=== PATIENT | female | born 1945 | race Caucasian/White ===

== ENCOUNTER 2016-06-14 08:47 | Inpatient (IN) | payer MEDICARE ==
[~2016-06-14 08:47] MED LIST: ACETAMINOPHEN 1000MG/100 ML PREMIX IV ONE; CEFAZOLIN 2 Gram 50 ML IVPB ONE; FAMOTIDINE 20MG TABLET PO ONE; MECLIZINE 25 MG TABLET PO ONE; METOCLOPRAMIDE 10 MG TABLET PO ONE
[2016-06-14] MEDS ORDERED: OXYCODONE HCL 5 MG TABLET PO PRN (13:15)
[2016-06-14] MEDS ORDERED: AL HYDROX/MAG HYDROX 30ML UD PO PRN (13:15)
[2016-06-14] MEDS ORDERED: ONDANSETRON HCL IV 4 MG/2 ML VIAL IVP PRN (13:15)
[2016-06-14] MEDS ORDERED: METOCLOPRAMIDE HCL 10 MG/2 ML VIAL IVP PRN (13:15)
[2016-06-14] MEDS ORDERED: MAGNESIUM HYDROXIDE 30 ML UDC PO PRN (13:15)
[2016-06-14] MEDS ORDERED: SENNOSIDES/DOCUSATE SODIUM UD CAPSULE PO PRN (13:15)
[2016-06-14] MEDS ORDERED: DIPHENHYDRAMINE HCL 25 MG CAPSULE PO PRN (13:15)
[2016-06-14] MEDS ORDERED: HYDROMORPHONE HCL 1 MG/ML CPJ IVP PRN (13:15)
[2016-06-14] MEDS ORDERED: ACETAMINOPHEN 1,000 MG/ 100 ML IV SCH ×2 (13:15)
[2016-06-14] MEDS ORDERED: ZOLPIDEM TARTRATE 5 MG TABLET PO PRN (13:15)
[2016-06-14] MEDS ORDERED: RANITIDINE 300 MG PO PRN (13:36)
[2016-06-14] MEDS ORDERED: *PACU ONLY* KETAMINE HCL 10 MG/ML (20ML) VIAL IV ONE (14:32)
[2016-06-14] MEDS ORDERED: FENTANYL PF 100MCG/2ML VIAL IV ONE (14:32)
[2016-06-14] MEDS ORDERED: MIDAZOLAM HCL 2MG/2ML VIAL IV ONE (14:32)
[2016-06-14] MEDS: RINGERS SOLUTION,LACTATED 1,000 ML IV SCH (14:56)
[2016-06-14] MEDS: ACETAMINOPHEN 1,000 MG/ 100 ML IV SCH ×4 (15:03→23:36)
[2016-06-14] MEDS ORDERED: TRANEXAMIC ACID 1,000 MG/10 ML ML IV ONE (15:04)
[2016-06-14] MEDS ORDERED: BUPIVACAINE 0.25% W/EPI MPF 30ML VIAL IVP ONE (15:04)
[2016-06-14] MEDS ORDERED: BUPIVACAINE LIPOSOME 266MG/20ML VIAL IV ONE (15:04)
[2016-06-14] MEDS: OXYCODONE HCL 5 MG TABLET PO PRN ×2 (15:06→18:52)
[2016-06-14] MEDS ORDERED: TRANEXAMIC ACID 1,000 MG in 0.9 % SODIUM CHLORIDE 100ML 100 ML IVPB ONE (15:30)
[2016-06-14] MEDS: LANTUS SC SCH (17:22)
[2016-06-14] MEDS: CEFAZOLIN 2 Gram 2 GM in DEXTROSE 1 BAG IVPB SCH (17:23)
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
[2016-06-14] MEDS: METFORMIN 500 MG PO SCH (17:37)
[2016-06-14] MEDS: HYDROMORPHONE HCL 1 MG/ML CPJ IVP PRN ×2 (20:40→23:34)
[2016-06-14] MEDS: ASPIRIN 325 MG TAB ENTERIC-COATED PO SCH (23:36)
[2016-06-14] MEDS: CARVEDILOL 3.125 MG PO SCH (23:37)
[2016-06-14] MEDS: PRAVASTATIN 80 MG PO SCH (23:38)
[2016-06-14] MEDS: EZETIMIBE 10 MG PO SCH (23:38)
[2016-06-14] MEDS: RANITIDINE 300 MG PO SCH (23:39)
[2016-06-15] MEDS: CEFAZOLIN 2 Gram 2 GM in DEXTROSE 1 BAG IVPB SCH ×2 (02:18→11:05)
[2016-06-15] MEDS: ACETAMINOPHEN 1,000 MG/ 100 ML IV SCH ×2 (03:51)
[2016-06-15 06:39] LABS: HEMATOCRIT 33.5 % (35.0-47.0); HEMOGLOBIN 10.5 gm/dl (11.6-16.0); MEAN CELL VOLUME 92.5 fl (81-97); MEAN CORPUSCULAR HGB CONC 31.3 g/dl (32-36); MEAN PLATELET VOLUME 9.7 fl (7.4-10.4); PLATELET COUNT 243 K/uL (130-400); RED BLOOD COUNT 3.62 M/uL (3.80-5.40); RED CELL DISTRIBUTION WIDTH 14.2 % (11.5-14.5); WHITE BLOOD COUNT W/O DIFF 12.5 K/uL (4.2-12.2)
[2016-06-15 06:49] LABS: INR 1.01; PROTHROMBIN TIME (PATIENT) 11.4 SECONDS (9.5-12.1)
[2016-06-15] MEDS: OXYCODONE HCL 5 MG TABLET PO PRN (07:30)
[2016-06-15] MEDS: HYDROMORPHONE HCL 1 MG/ML CPJ IVP PRN ×2 (08:00→11:27)
[2016-06-15] MEDS: INDAPAMIDE 1.25 MG PO SCH (11:15)
[2016-06-15] MEDS: IRBESARTAN 150 MG PO SCH (11:15)
[2016-06-15] MEDS: CARVEDILOL 3.125 MG PO SCH ×3 (11:15→21:44)
[2016-06-15] MEDS: SERTRALINE 100 MG PO SCH (11:16)
[2016-06-15] MEDS: METFORMIN 500 MG PO SCH ×2 (11:17→20:22)
[2016-06-15] MEDS: ASPIRIN 325 MG TAB ENTERIC-COATED PO SCH ×3 (11:18→21:44)
[2016-06-15] MEDS: RINGERS SOLUTION,LACTATED 1,000 ML IV SCH ×2 (11:27→21:46)
--- NOTE | 2016-06-15 12:06 | Physical Therapy Tx Note ---
Physical Therapy Tx Note - Treatment Note Tolerated: Fair Total Time Spent With Patient: 25 Physical Therapy Tx Note: Detail (Patient was sitting on EOB with nursing when PT arrived. Reports her post-operative pain is worse today. Noted surgical drain on R knee and SPO2 set at 2 LO2. Patient ambulated with FWW and SBA x1, to and from the bathroom, for a total of 13'. Gait analysis reveals pt utilizes a step-to gait pattern and shortened stride length due to pain s/p surgery. Educated patient about requirements for swing bed and PT's impression of her progress thus far. SPT and PT observed she is independent with ambulation using RW, bed mobility using upper trapeze bar, and with sit <> stand. She requested help to move her R LE in bed, but was able to move with CGA x1. Patient requires frequent encouragment to fully participate in PT.) Physical Therapy Problem List: Detail (1) LE weakness 2) Antalgic gait 3) LE edema 4) Assistance with bed mobility and transfers) Physical Therapy Goals: 1) Pt. will be independent with HEP. 2) Pt. will I ambulate with AD for household distances without LOB or fear of falling for return to home environment. 3) Pt. will be I with bed mobility and transfers. 4) Pt. will safely and I ascend and descend 5 steps with AD for return to home environment. 5) Pt. will verbalize understanding of LE precautions. Prognosis: Moderate (Patient prognosis is expected to be moderate or above. Moderate prognosis was established on the basis that patient has significant pain with both knee flexion and extension and she tends to limit mobility and support R LE as a result of the pain.) Physical Therapy Plan: The pt. will be seen 1-2x per day, starting 06-15-16 for inpatient therapy for improvement in functional status to return to home environment when goals are achieved.
--- NOTE | 2016-06-15 13:06 | Operative Note ---
DATE OF SURGERY: 06/14/2016. SURGEON: Edgar Sampson D.O. REFERRING PHYSICIAN: Brayden Mccarthy D.O. PREOPERATIVE DIAGNOSIS: OSTEOARTHRITIS OF THE RIGHT KNEE. POSTOPERATIVE DIAGNOSIS: OSTEOARTHRITIS OF THE RIGHT KNEE. OPERATIVE PROCEDURE: Right total knee arthroplasty. DESCRIPTION OF PROCEDURE: This 70-year-old female was taken to the operating room and was placed in the supine position on the operating room table. Spinal anesthesia was induced by the Department of Anesthesia. The right lower extremity was elevated. It was prepped with Hibiclens and draped in the usual sterile fashion. It was exsanguinated and the tourniquet was inflated to 300 mm Hg. All scrubbed personnel wore personal isolation suits. An anterior longitudinal midline incision was made followed by a medial peripatellar arthrotomy incision. An intracondylar drill hole was made for the intramedullary alignment kem and the 9.0 mm, 5-degree valgus cut was made on the distal femur. The wafer of bone was removed. The sizing jig was affixed. A size 57.5 was seen to be the appropriate size for the femur. Subsequently the four-in-one cutting block was pinned in 3 degrees of external rotation and the appropriate cuts were made. We then directed our attention to the proximal tibia. An extramedullary alignment guide was used to cut the proximal tibia referencing a 10-mm cut off the lateral tibial plateau. We then made the appropriate cut on the tibia and the wafer of bone was removed. Remnants of the menisci and loose joint bodies were removed from the posterior aspect of the knee. Remnants of the menisci and osteophytes were removed, and the search for loose joint bodies did not reveal any further loose joint bodies after we had removed approximately three to four. The tibia was sized to a size 67. A 71 overhung slightly and it was felt that we would be better with the 67. Subsequently the stem punch was used , and the trial components were inserted. A 10 mm bearing was seen to be the appropriate size to restore full range of motion. The patella was cut and restored to anatomic heights with a 31 x 8.0 mm patella. The patient's patella was quite tight, and it was felt that a lateral release would be appropriate. Subsequently this was performed, and this dramatically improved patellofemoral stability. The wound was copiously irrigated with lactated ringers solution after all trial components were removed. All of the bony surfaces were dried, and all components were cemented into place. Excess cement was removed after the insertion of each component. Exparel was injected into the posteromedial and lateral corners of the joint and into the periosteum and joint capsule of the proximal tibia and distal femur after all of the final components had been inserted. The tibial base plate was placed first, followed by the insertion of the tibial bearing, the femoral component, and finally the patella. Once the cement had hardened, the knee was again taken through range of motion with excellent stability of the components being identified. The wound was again irrigated with lactated ringers solution. A drain was placed through a separate stab incision. The arthrotomy incision was closed with 2-0 Vicryl. The subcutaneous tissue was closed with 0 Vicryl. The skin was stapled and sterile dressings were applied. The patient was taken to the recovery room in satisfactory condition. GROSS PATHOLOGY: This patient demonstrated advanced medial compartment osteoarthritis; full-thickness articular cartilage loss noted. The patella also demonstrated advanced degenerative disease. FINAL COMPONENTS INSERTED: A [employer] Kenia VanGuard size 57.5 cruciate- retaining femoral component, size 67 tibial base plate, a 10-mm anterior stabilized tibial bearing, and a 31 x 8.0 mm patella was used. Edgar Sampson D.O. Date Time Job Number: [id number] MTDD
[2016-06-15] MEDS ORDERED: ACETAMINOPHEN 325 MG TAB PO PRN (13:15)
[2016-06-15] MEDS: HYDROCODONE/APAP 5/325MG TABLET PO PRN ×2 (14:45→23:06)
--- NOTE | 2016-06-15 15:20 | Physical Therapy Tx Note ---
Physical Therapy Tx Note - Treatment Note Tolerated: Good Total Time Spent With Patient: 35 Physical Therapy Tx Note: Detail (Patient was asleep in bed when PT arrived with CPM turned on and set to 0-60 degrees. Noted removal of post-surgical drain and new application of bandages. Patient reports significant pain no less than 8/10. She requested pain medication per her nurse to control the pain while participating in therapy; nurse was contacted appropriately. Patient did not use oxygen during therapy session, but did have it available. Patient required CGA/Zofia x1 to lift R LE into and out of bed due to pain. Also required less than min A x1 to scoot into bed due to bed height. Otherwise, she was independent with transfers and bed mobility. Patient ambulated to and from her restroom with FWW and CGA x1 to her chair. Patient tends to push up on FWW. Instructed patient to use the grab bar in the bathroom to support herself with sit to stand rather than the FWW due to safety concerns. Pt was able to demonstrate safe mechanics with transfer. While seated in her chair, a small stool was placed under her LEs to accomodate for her height. Appeared hesitant to allow R knee flexion, most likely attributed to pain tolerance. Patient then ambulated from chair to hallway and back to her bed for a total of 60' ( including distance to and from restroom). Plan to continue PT to progress towards functional goals.) Physical Therapy Problem List: Detail (1) LE weakness 2) Antalgic gait 3) LE edema 4) Assistance with bed mobility and transfers) Physical Therapy Goals: 1) Pt. will be independent with HEP. 2) Pt. will I ambulate with AD for household distances without LOB or fear of falling for return to home environment. 3) Pt. will be I with bed mobility and transfers. 4) Pt. will safely and I ascend and descend 5 steps with AD for return to home environment. 5) Pt. will verbalize understanding of LE precautions. Physical Therapy Plan: The pt. will be seen 1-2x per day, starting 06-15-16 for inpatient therapy for improvement in functional status to return to home environment when goals are achieved.
[2016-06-15] MEDS: LANTUS SC SCH (17:47)
[2016-06-15] MEDS: RANITIDINE 300 MG PO SCH ×2 (20:22→21:45)
[2016-06-15] MEDS: PRAVASTATIN 80 MG PO SCH (20:23)
[2016-06-15] MEDS: EZETIMIBE 10 MG PO SCH ×2 (20:23→21:45)
[2016-06-16 06:36] LABS: HEMATOCRIT 31.7 % (35.0-47.0); HEMOGLOBIN 10.1 gm/dl (11.6-16.0); MEAN CELL VOLUME 90.8 fl (81-97); MEAN CORPUSCULAR HEMOGLOBIN 28.9 pg (27-33); MEAN CORPUSCULAR HGB CONC 31.9 g/dl (32-36); MEAN PLATELET VOLUME 10.6 fl (7.4-10.4); PLATELET COUNT 215 K/uL (130-400); RED BLOOD COUNT 3.49 M/uL (3.80-5.40); RED CELL DISTRIBUTION WIDTH 14.2 % (11.5-14.5); WHITE BLOOD COUNT W/O DIFF 12.1 K/uL (4.2-12.2)
[2016-06-16 06:42] LABS: INR 1.07; PROTHROMBIN TIME (PATIENT) 12.1 SECONDS (9.5-12.1)
[2016-06-16] MEDS: HYDROCODONE/APAP 5/325MG TABLET PO PRN ×3 (08:46→21:40)
[2016-06-16] MEDS: SERTRALINE 100 MG PO SCH ×2 (08:48→10:47)
[2016-06-16] MEDS: INDAPAMIDE 1.25 MG PO SCH ×2 (08:50→10:46)
[2016-06-16] MEDS: CARVEDILOL 3.125 MG PO SCH ×4 (08:51→22:39)
[2016-06-16] MEDS: IRBESARTAN 150 MG PO SCH ×2 (08:51→10:46)
[2016-06-16] MEDS: METFORMIN 500 MG PO SCH ×2 (08:52→17:50)
[2016-06-16] MEDS: ASPIRIN 325 MG TAB ENTERIC-COATED PO SCH ×2 (10:42→22:39)
--- NOTE | 2016-06-16 11:54 | Physical Therapy Tx Note ---
Physical Therapy Tx Note - Treatment Note Total Time Spent With Patient: 40 Physical Therapy Tx Note: Detail (Supine<>sit and sit<>stand Independent, ambulated 3 steps and level surfaces with cues for saftey. level surfaces 60' x2 all using 2ww. min. c/o pain, but TRONCOSO. pt was also cued to pursed lip breath to avoid too much 02 dept AM treatment.PM treatment supine <> sit with 1 assist for right LE, Sit <> stand independent, independent ambulation 60' x2 and up & down 3 steps with min PA of 1. pursed lip breathing improved this pm.) Physical Therapy Problem List: Detail (1) LE weakness 2) Antalgic gait 3) LE edema 4) Assistance with bed mobility and transfers) Physical Therapy Goals: 1) Pt. will be independent with HEP. 2) Pt. will I ambulate with AD for household distances without LOB or fear of falling for return to home environment. 3) Pt. will be I with bed mobility and transfers. 4) Pt. will safely and I ascend and descend 5 steps with AD for return to home environment. 5) Pt. will verbalize understanding of LE precautions. Prognosis: Good Physical Therapy Plan: The pt. will be seen 1-2x per day, starting 06-15-16 for inpatient therapy for improvement in functional status to return to home environment when goals are achieved.
[2016-06-16] MEDS: LANTUS SC SCH (16:30)
[2016-06-16] MEDS: EZETIMIBE 10 MG PO SCH ×2 (17:56→22:39)
[2016-06-16] MEDS: PRAVASTATIN 80 MG PO SCH ×2 (17:57→22:39)
[2016-06-16] MEDS: RANITIDINE 300 MG PO SCH ×2 (17:58→22:40)
[2016-06-17] MEDS: HYDROCODONE/APAP 5/325MG TABLET PO PRN ×2 (05:11→11:25)
[2016-06-17 06:47] LABS: HEMATOCRIT 30.2 % (35.0-47.0); HEMOGLOBIN 9.6 gm/dl (11.6-16.0); MEAN CELL VOLUME 91.5 fl (81-97); MEAN CORPUSCULAR HGB CONC 31.8 g/dl (32-36); MEAN PLATELET VOLUME 10.1 fl (7.4-10.4); PLATELET COUNT 236 K/uL (130-400); RED CELL DISTRIBUTION WIDTH 14.1 % (11.5-14.5); WHITE BLOOD COUNT W/O DIFF 10.6 K/uL (4.2-12.2)
[2016-06-17 06:53] LABS: INR 1.04; PROTHROMBIN TIME (PATIENT) 11.7 SECONDS (9.5-12.1)
[2016-06-17] MEDS: METFORMIN 500 MG PO SCH (09:00)
[2016-06-17] MEDS: ASPIRIN 325 MG TAB ENTERIC-COATED PO SCH (10:22)
[2016-06-17] MEDS: CARVEDILOL 3.125 MG PO SCH (10:24)
[2016-06-17] MEDS: SERTRALINE 100 MG PO SCH (10:25)
[2016-06-17] MEDS: INDAPAMIDE 1.25 MG PO SCH (10:27)
[2016-06-17] MEDS: IRBESARTAN 150 MG PO SCH (10:29)
--- NOTE | 2016-06-17 13:38 | Physical Therapy Tx Note ---
Physical Therapy Tx Note - Treatment Note Tolerated: Good (Patient doing extremely well but does get short of breath sometimes with gait: O2 handy prn. Still difficulty bending knee also so tried exercises seated in chair today with better result.) Total Time Spent With Patient: 30 Physical Therapy Tx Note: Detail (Patient seen bedside, just finishing meal and willing to get up and walk so CGA and ambulated with FWW into banerjee at least 100 feet (just past nurses station) WBAT right LE. Back to sit in chair and worked on ROM for knee, hip and ankle with slight resistance. Transferred back to bed with CGA only and assist to get right LE into the bed, up in bed with trapeze and assist with right LE only.) Physical Therapy Problem List: Detail (1) LE weakness 2) Antalgic gait 3) LE edema 4) Assistance with bed mobility and transfers) Physical Therapy Goals: 1) Pt. will be independent with HEP. 2) Pt. will I ambulate with AD for household distances without LOB or fear of falling for return to home environment. 3) Pt. will be I with bed mobility and transfers. 4) Pt. will safely and I ascend and descend 5 steps with AD for return to home environment. 5) Pt. will verbalize understanding of LE precautions. Prognosis: Good (Patient doing very well and ready to transition to swing bed tomorrow. Plan to see one time more today if patient not sleeping.) Physical Therapy Plan: The pt. will be seen 1-2x per day, starting 06-15-16 for inpatient therapy for improvement in functional status to return to home environment when goals are achieved.
--- NOTE | 2016-06-17 14:48 | Physical Therapy Tx Note ---
Physical Therapy Tx Note - Treatment Note Tolerated: Good (Patient still doing well this afternoon and had short nap for rest. Supine to sit to stand with cues and CGA only, ambulated in banerjee about 100 feet with FWW and CGA, WBAT right. Performed exercises for knee and needed slight assist with SLR right yet, heel slides as well. Independent with isometrics and ankle pumps. Up in bed with slight assist right LE.) Total Time Spent With Patient: 20 Physical Therapy Tx Note: Detail (See above. Able to ambulate with FWW 100 feet or more with good WB right. Exercises require some assist for heel slide and SLR.) Physical Therapy Problem List: Detail (1) LE weakness 2) Antalgic gait 3) LE edema 4) Assistance with bed mobility and transfers) Physical Therapy Goals: 1) Pt. will be independent with HEP. 2) Pt. will I ambulate with AD for household distances without LOB or fear of falling for return to home environment. 3) Pt. will be I with bed mobility and transfers. 4) Pt. will safely and I ascend and descend 5 steps with AD for return to home environment. 5) Pt. will verbalize understanding of LE precautions. Prognosis: Good (Excellent progress, no shortness of breath but does use O2 when has been up and active.) Physical Therapy Plan: The pt. will be seen 1-2x per day, starting 06-15-16 for inpatient therapy for improvement in functional status to return to home environment when goals are achieved. Plan is for patient to transition to swingbed for rehab Saturday after PT finished.
--- NOTE | 2016-06-18 15:50 | Discharge Summary ---
DATE OF ADMISSION: 06/14/16 DATE OF DISCHARGE: 06/17/16 ADMITTING DIAGNOSIS: OSTEOARTHRITIS OF THE LEFT KNEE. DISCHARGE DIAGNOSIS: OSTEOARTHRITIS OF THE LEFT KNEE. OPERATIVE PROCEDURE: ELECTIVE LEFT TOTAL KNEE ARTHROPLASTY. DESCRIPTION: This 70-year-old female was admitted to the hospital for elective total knee arthroplasty and tolerated the operative procedure well. She complained of a considerable amount of pain, which was controlled. She progressed somewhat slowly with physical therapy and it was felt that she would need subacute rehab. The patient will be discharged to the Swing Bed Program on 06/17/16. She will wear her PAMELA hose during the day and remove them at night. She will continue to take Percocet 7.5/325 one or two every six hours as necessary for pain and she will take Aspirin 325 mg b.i.d. for a two week period of time. She will be follow-up in the clinic in two weeks for staple removal. Routine wound care instructions were given. She was instructed to call my office should she have any problems prior to being seen. DALIA HERNANDEZ D.O. Date & Time JOB NUMBER: [id number] MTDD
== END 2016-06-17 15:15 | disposition swing bed (61) | DRG 470 ==
LOC: MEDSURG 08:47
PROVIDERS: ADMIT Orthopaedic Surgery; ATTEND Orthopaedic Surgery
PROC: 0SRC0J9 Replacement of Right Knee Joint with Synthetic Substitute, Cemented, Open Approach (ICD-10-PCS; principal; 2016-06-14 11:00)
DX: M17.11 Unilateral primary osteoarthritis, right knee (principal); E11.9 Type 2 diabetes mellitus without complications; Z79.4 Long term (current) use of insulin; I10 Essential (primary) hypertension; J43.9 Emphysema, unspecified
CPT/HCPCS: 36416; 82948; 85025; 85610; 93005; 93010; 94760; 97110; 97116; 97161; J1170; J7120

== ENCOUNTER 2016-06-17 14:37 | Inpatient (IN) | payer MEDICARE ==
[~2016-06-17 14:37] MED LIST changes: -ACETAMINOPHEN 1000MG/100 ML PREMIX IV ONE; +ACETAMINOPHEN 325 MG TAB PO PRN; +AL HYDROX/MAG HYDROX 30ML UD PO PRN; -CEFAZOLIN 2 Gram 50 ML IVPB ONE; +DIPHENHYDRAMINE HCL 25 MG CAPSULE PO PRN; -FAMOTIDINE 20MG TABLET PO ONE; +HYDROCODONE/APAP 5/325MG TABLET PO PRN; +MAGNESIUM HYDROXIDE 30 ML UDC PO PRN; -MECLIZINE 25 MG TABLET PO ONE; -METOCLOPRAMIDE 10 MG TABLET PO ONE; +SENNOSIDES/DOCUSATE SODIUM UD CAPSULE PO PRN
[2016-06-17] MEDS: LANTUS SC SCH (17:29)
[2016-06-17] MEDS ORDERED: FLU VAC QS 2016-17 (INPT, 3YR+) 60MCG/0.5ML IM ONE (17:33)
[2016-06-17] MEDS: METFORMIN 500 MG PO SCH (18:11)
[2016-06-17] MEDS: HYDROCODONE/APAP 5/325MG TABLET PO PRN (18:12)
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
[2016-06-17] MEDS: PATIENT OWN MED: ASPIRIN 325 MG PO SCH ×2 (20:05→22:10)
[2016-06-17] MEDS: RANITIDINE 300 MG PO SCH ×2 (20:05→22:11)
[2016-06-17] MEDS: CARVEDILOL 3.125 MG PO SCH ×2 (20:06→22:10)
[2016-06-17] MEDS: EZETIMIBE 10 MG PO SCH ×2 (20:07→22:10)
[2016-06-17] MEDS: PRAVASTATIN 80 MG PO SCH ×2 (20:07→22:10)
[2016-06-18] MEDS: HYDROCODONE/APAP 5/325MG TABLET PO PRN ×2 (07:34→15:56)
[2016-06-18] MEDS: METFORMIN 500 MG PO SCH ×2 (07:36→17:53)
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
[2016-06-18] MEDS: CARVEDILOL 3.125 MG PO SCH ×3 (10:34→23:37)
[2016-06-18] MEDS: PATIENT OWN MED: ASPIRIN 325 MG PO SCH ×3 (10:34→23:36)
[2016-06-18] MEDS: SERTRALINE 100 MG PO SCH (10:35)
[2016-06-18] MEDS: IRBESARTAN 150 MG PO SCH (10:35)
[2016-06-18] MEDS: INDAPAMIDE 1.25 MG PO SCH (10:35)
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
--- NOTE | 2016-06-18 14:35 | Physical Therapy Tx Note ---
Physical Therapy Tx Note - Treatment Note Tolerated: Good Total Time Spent With Patient: 30 Physical Therapy Tx Note: Detail (Patient states right knee very painful today. Patient transferred supine to sit independently. Patient performed the following exercises x10 reps each: SLR with green strap assist, quad set, seated marching, adductor squeeze, LAQ, hamstring curls with red theraband, ankle pumps, seated marching, isometric hip abduciton, and seated heel slides. Patient transferred sit to and from stand SBA x1. Patient ambulated 102 feet with wheeled walker SBA x1. Patient tolerated treatment well. Patient displays decreased strength and endurance with LAQ, SLR with assist, quad sets, hamstring curls, and seated marching. Patient displays decreased knee flexion and extension ROM with seated heel slides. Patient was left seated on edge of bed with call light within reach.) Physical Therapy Problem List: Detail (1. restricted R knee AROM 2.) Prognosis: Good
[2016-06-18] MEDS: LANTUS SC SCH (16:37)
[2016-06-18] MEDS: EZETIMIBE 10 MG PO SCH ×2 (21:23→23:37)
[2016-06-18] MEDS: RANITIDINE 300 MG PO SCH ×2 (21:24→23:38)
[2016-06-18] MEDS: PRAVASTATIN 80 MG PO SCH ×2 (21:25→23:38)
[2016-06-19] MEDS: METFORMIN 500 MG PO SCH ×2 (08:35→17:35)
[2016-06-19] MEDS: HYDROCODONE/APAP 5/325MG TABLET PO PRN ×2 (08:39→17:26)
[2016-06-19] MEDS: PATIENT OWN MED: ASPIRIN 325 MG PO SCH ×3 (09:23→21:03)
[2016-06-19] MEDS: CARVEDILOL 3.125 MG PO SCH ×3 (09:23→21:03)
[2016-06-19] MEDS: INDAPAMIDE 1.25 MG PO SCH (09:24)
[2016-06-19] MEDS: IRBESARTAN 150 MG PO SCH (09:25)
[2016-06-19] MEDS: SERTRALINE 100 MG PO SCH (09:27)
--- NOTE | 2016-06-19 10:40 | Physical Therapy Tx Note ---
Physical Therapy Tx Note - Treatment Note Tolerated: Good (Patient's pain control was well controlled throughout the therapy session.) Total Time Spent With Patient: 35 Physical Therapy Tx Note: Detail (Patient was sitting upright in bed when PT arrived. Patient independently dress herself sitting on EOB and was able to WB to pull her bottoms up. PT brought patient up to rehab floor in for therapy session. Patient was able to ascend 3-4" steps and 2-6" steps using 2 railings without difficulty or pain exacerbation. In supine, the patient performed the following therapeutic exercises:R TKE into stability ball x10, R straight leg raise x7 with x1 fingertip support to initiate movement, and R hamstring curl using stability ball to address knee ROM and strength. To further address knee flexion, patient performed heel slides x10 in sitting. R Knee ROM measured 70 degrees flexion and -9 degrees extension (lacking 9 deg). Patient's pain appeared to be well controlled throughout the session per patient report.) Physical Therapy Problem List: Detail (1. Restricted R knee AROM s/p TKA 2. Reduced R hip and knee strength s/p TKA 3. Difficulty lifting R LE into bed due to pain 3. Difficulty performing isolated control of R quadriceps muscle 4. Improve gait pattern using FWW to facilitate normal ROM of R LE.) Physical Therapy Goals: 1) Patient will demonstrate an improvement of hip and knee ROM by 5-15 degrees. 2) Patient will demonstrate an increase of 1/3+ grade R hip flexion and knee flexion/extension with MMT. 3) Patient will demonstrate independence with HEP. 4) Patient will achieve improved gait mechanics as demonstrated by an increase in B stride length and R knee flexion throughout swing phase 75% of the time. 5) Patient will be able to lift R LE into bed without use of L leg or strap to assist. Prognosis: Good (Patient was sitting up in bed when PT arrived. Patient dressed herself sitting EOB and was able to WB to pull up her bottoms without UE support. PT transported her to the rehab floor in for therapy session. Pt ascended 3- 4" and descended 2-6" steps with 2 railings without difficulty or pain exacerbation. In supine, patient performed the following therapeutic exercises: TKE into stability ball x10, SLR x7 with x1 fingertip support to help initiate movement, and R SL hamstring curl using stability ball x10. Patient performed 10 heel slides in sitting to address knee flexion AROM. Ending ROM measured 70 degrees knee flexion and lackingn 9 degrees knee extension. Patient reported less pain throughout and at the conclusion of the) Physical Therapy Plan: PT M-F 1-2x/day to address LE strength, LE ROM, neuromuscular reeducation, gait training, transfer training, and HEP.
--- NOTE | 2016-06-19 14:44 | Occupational Therapy Tx Note ---
Occupational Therapy Tx Note - Treatment Note Tolerated: Good Total Time Spent With Patient: 30 (ADL) Occupational Therapy Treatment Note: Detail (S: Pt ready for showering. O: Shower evaluation: Sit to stand and amb to shower with 2 wheeled walker Indly. Doffed shirt, bra, pants, underpants Indly. Pt completed total body shower in sitting with hand held shower. Pt able to dry self Indly. Donned underpants and PJ gown Indly. Amb to EOB with 2 wheeled walker Indly. Brushed hair Indly. Sit to supine Indly and scooted up in bed with trapeze. Pt had some shortness of breath but she reports it is better than it usually is at home. A: Ind with total body showering, Ind with total body dressing, Ind with amb short distances with 2 wheeled walker) Occupational Therapy Problem List: Detail (1. Decreased Ind with toileting and showering 2. Decreased endurance with self care activities) Occupational Therapy Goals: 1. Pt will be Ind with toileting and showering. 2. Pt will improve overall endurance needed for safe and Ind ADLs Prognosis: Good Occupational Therapy Plan: OT 2-4 days per week to address self cares/ADLs, functional mobility, endurance and safety to allow return home with spouse.
[2016-06-19] MEDS: LANTUS SC SCH (15:37)
[2016-06-19] MEDS: EZETIMIBE 10 MG PO SCH ×2 (20:25→21:03)
[2016-06-19] MEDS: PRAVASTATIN 80 MG PO SCH ×2 (20:25→21:03)
[2016-06-19] MEDS: RANITIDINE 300 MG PO SCH ×2 (20:25→21:04)
[2016-06-20] MEDS: HYDROCODONE/APAP 5/325MG TABLET PO PRN ×3 (07:14→14:14)
[2016-06-20] MEDS: METFORMIN 500 MG PO SCH ×2 (08:23→18:28)
--- NOTE | 2016-06-20 11:31 | Physical Therapy Tx Note ---
Physical Therapy Tx Note - Treatment Note Tolerated: Good Total Time Spent With Patient: 45 Physical Therapy Tx Note: Detail (Patient was resting in bed when PT arrived. Pt independently transferred to and PT brought her up to the rehab floor. Performed 15x heel slides with 2 sec hold sitting on edge of mat table. When transitioning to supine, patient reported pain and a feeling of a "pop" on the outside of her leg. No obvious LOTUS per SPT observation of pt movement. SPT and PT assessed lateral aspect of knee and identified restricted scar tissue and tightness at IT band insertion. Performed STM and MFR to IT band insertion, popliteal area, lateral gastrocnemius insertion, and proximal aspect of anterior tibialis muscle belly for a total of 20 minutes. Patient reported relief with MTT and was able to complete the following therapeutic exercises: TKE into stability ball x12, SLR x3, and short arc quad x10. SPT also performed gentle joint distraction for 1 min to reduce pain and influence knee extension. Ice machine was placed on R knee to reduce pain and swelling. End of session ROM measured 72 degrees flexion and -10 degrees extension.) Physical Therapy Problem List: Detail (1. Restricted R knee AROM s/p TKA 2. Reduced R hip and knee strength s/p TKA 3. Difficulty lifting R LE into bed due to pain 3. Difficulty performing isolated control of R quadriceps muscle 4. Improve gait pattern using FWW to facilitate normal ROM of R LE.) Physical Therapy Goals: 1) Patient will demonstrate an improvement of hip and knee ROM by 5-15 degrees. 2) Patient will demonstrate an increase of 1/3+ grade R hip flexion and knee flexion/extension with MMT. 3) Patient will demonstrate independence with HEP. 4) Patient will achieve improved gait mechanics as demonstrated by an increase in B stride length and R knee flexion throughout swing phase 75% of the time. 5) Patient will be able to lift R LE into bed without use of L leg or strap to assist. Prognosis: Good Physical Therapy Plan: PT M-F 1-2x/day to address LE strength, LE ROM, neuromuscular reeducation, gait training, transfer training, and HEP.
[2016-06-20] MEDS: PATIENT OWN MED: ASPIRIN 325 MG PO SCH ×2 (11:33→21:29)
[2016-06-20] MEDS: INDAPAMIDE 1.25 MG PO SCH (11:34)
[2016-06-20] MEDS: CARVEDILOL 3.125 MG PO SCH ×2 (11:34→21:28)
[2016-06-20] MEDS: SERTRALINE 100 MG PO SCH (11:34)
[2016-06-20] MEDS: IRBESARTAN 150 MG PO SCH (11:34)
--- NOTE | 2016-06-20 14:41 | Physical Therapy Tx Note ---
Physical Therapy Tx Note - Treatment Note Tolerated: Fair Total Time Spent With Patient: 15 (Patient's participation limited due to pain) Physical Therapy Tx Note: Detail (Patient was sitting in bed with nursing present when PT arrived. Pt just received pain medication and verbalized she was still in excruciating pain from this morning's session. Patient agreed to participate with PT and SPT. Treatment focused on functional goals, namely to get into and out of tub to ensure safe transition home. Patient transferred from sit to stand with FWW and ambulated approx 31' x2 with SBA x2. Instructed patient on how to get into and out of tub with shower chair using safe techniques. Patient was able to independently get into and out of tub with with some difficulty and increased pain lifting the R leg. Verbal cueing for assisting R leg was provided and patient was able to successfully complete tub transfer. Patient verbalized no concerns with tub transfer and reiterated she plans to install grab bars. Patient left in bed with call light within reach; nursing notified.) Physical Therapy Problem List: Detail (1. Restricted R knee AROM s/p TKA 2. Reduced R hip and knee strength s/p TKA 3. Difficulty lifting R LE into bed due to pain 3. Difficulty performing isolated control of R quadriceps muscle 4. Improve gait pattern using FWW to facilitate normal ROM of R LE.) Physical Therapy Goals: 1) Patient will demonstrate an improvement of hip and knee ROM by 5-15 degrees. 2) Patient will demonstrate an increase of 1/3+ grade R hip flexion and knee flexion/extension with MMT. 3) Patient will demonstrate independence with HEP. 4) Patient will achieve improved gait mechanics as demonstrated by an increase in B stride length and R knee flexion throughout swing phase 75% of the time. 5) Patient will be able to lift R LE into bed without use of L leg or strap to assist. Physical Therapy Plan: PT M-F 1-2x/day to address LE strength, LE ROM, neuromuscular reeducation, gait training, transfer training, and HEP.
[2016-06-20] MEDS: LANTUS SC SCH (16:49)
[2016-06-20] MEDS: PRAVASTATIN 80 MG PO SCH (21:28)
[2016-06-20] MEDS: EZETIMIBE 10 MG PO SCH (21:28)
[2016-06-20] MEDS: RANITIDINE 300 MG PO SCH (21:28)
[2016-06-21] MEDS: METFORMIN 500 MG PO SCH ×2 (07:55→17:51)
[2016-06-21] MEDS: PATIENT OWN MED: ASPIRIN 325 MG PO SCH ×2 (09:47→21:37)
[2016-06-21] MEDS: CARVEDILOL 3.125 MG PO SCH ×2 (09:48→21:38)
[2016-06-21] MEDS: SERTRALINE 100 MG PO SCH (09:48)
[2016-06-21] MEDS: INDAPAMIDE 1.25 MG PO SCH (09:49)
[2016-06-21] MEDS: IRBESARTAN 150 MG PO SCH (09:49)
[2016-06-21] MEDS: HYDROCODONE/APAP 5/325MG TABLET PO PRN ×2 (09:52→16:28)
--- NOTE | 2016-06-21 11:25 | Physical Therapy Tx Note ---
Physical Therapy Tx Note - Treatment Note Tolerated: Good Total Time Spent With Patient: 45 Physical Therapy Tx Note: Detail (Patient states right knee sore today. Patient transferred supine to sit independently. Patient transferred sit to and from stand SBA x1. Patient transferred sit to supine independently. Patient ambulated 99 feet with wheeled walker SBA x1. Patient transferred sit to and from stand SBA x1. Patient performed the following exercises x10 reps each: LAQ, hamstring curls with yellow theraband, quad sets, SLR with assist, SAQ, physioball knee ROM flexion/extension, and ankle pumps. Patient transferred supine to sit mod assist x1. Patient transferred sit to and from stand x2 SBA x1. Patient transferred sit to supine independently. Patient was left reclined in bed with call light within reach.) Physical Therapy Problem List: Detail (1. Restricted R knee AROM s/p TKA 2. Reduced R hip and knee strength s/p TKA 3. Difficulty lifting R LE into bed due to pain 3. Difficulty performing isolated control of R quadriceps muscle 4. Improve gait pattern using FWW to facilitate normal ROM of R LE.) Physical Therapy Goals: 1) Patient will demonstrate an improvement of hip and knee ROM by 5-15 degrees. 2) Patient will demonstrate an increase of 1/3+ grade R hip flexion and knee flexion/extension with MMT. 3) Patient will demonstrate independence with HEP. 4) Patient will achieve improved gait mechanics as demonstrated by an increase in B stride length and R knee flexion throughout swing phase 75% of the time. 5) Patient will be able to lift R LE into bed without use of L leg or strap to assist. Prognosis: Good Physical Therapy Plan: PT M-F 1-2x/day to address LE strength, LE ROM, neuromuscular reeducation, gait training, transfer training, and HEP.
--- NOTE | 2016-06-21 14:36 | Physical Therapy Tx Note ---
Physical Therapy Tx Note - Treatment Note Tolerated: Good Total Time Spent With Patient: 30 Physical Therapy Tx Note: Detail (Patient states 8/10 pain in right knee. Patient transferred supine to sit independently. Patient transferred sit to and from stand independently. Patient ambulated 211 feet with wheeled walker SBA x1. Patient transferred sit to and from stand independently. Patient ambulated 99 feet with wheeled walker SBA x1. Patient performed the following exercises x10 reps each: seated marching, seated heel slides, LAQ, hamstring curls with yellow, standing heel raises, and standing toe raises. Patient tolerated treatment well. Patient displays decreased knee flexion ROM with seated heel slides. Patient was left seated on edge of bed with call light within reach.) Physical Therapy Problem List: Detail (1. Restricted R knee AROM s/p TKA 2. Reduced R hip and knee strength s/p TKA 3. Difficulty lifting R LE into bed due to pain 3. Difficulty performing isolated control of R quadriceps muscle 4. Improve gait pattern using FWW to facilitate normal ROM of R LE.) Physical Therapy Goals: 1) Patient will demonstrate an improvement of hip and knee ROM by 5-15 degrees. 2) Patient will demonstrate an increase of 1/3+ grade R hip flexion and knee flexion/extension with MMT. 3) Patient will demonstrate independence with HEP. 4) Patient will achieve improved gait mechanics as demonstrated by an increase in B stride length and R knee flexion throughout swing phase 75% of the time. 5) Patient will be able to lift R LE into bed without use of L leg or strap to assist. Prognosis: Good Physical Therapy Plan: PT M-F 1-2x/day to address LE strength, LE ROM, neuromuscular reeducation, gait training, transfer training, and HEP.
[2016-06-21] MEDS: LANTUS SC SCH (15:34)
[2016-06-21] MEDS: PRAVASTATIN 80 MG PO SCH (21:38)
[2016-06-21] MEDS: EZETIMIBE 10 MG PO SCH (21:38)
[2016-06-21] MEDS: RANITIDINE 300 MG PO SCH (21:39)
[2016-06-22] MEDS: HYDROCODONE/APAP 5/325MG TABLET PO PRN (06:08)
[2016-06-22] MEDS: METFORMIN 500 MG PO SCH (08:19)
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
--- NOTE | 2016-06-22 10:00 | Discharge Summary ---
Providers Discharge Summary Date: 06/22/16 Date of admission: 06/17/16 15:47 Expected Date of Discharge: 06/22/16 Attending physician: DILLON BUSTAMANTE Primary care physician: MARCUS HUTTON D.O. Physical Exam - Vital Signs Vital Signs: Vital Signs - Last 24 Hrs Temp Pulse BP Pulse Ox 06/22/16 08:51 98.5 F 73 137/43 92 L - General General Appearance: Alert, Oriented x3, Cooperative, No acute distress - Head Head exam: Atraumatic, Normocephalic - Eye Eye exam: Normal appearance - ENT ENT exam: Normal exam Ear exam: Normal external inspection Nasal Exam: Normal inspection Teeth exam: Normal inspection Throat exam: Normal inspection - Neck Neck exam: Normal inspection, Full ROM - Respiratory Respiratory exam: Normal lung sounds bilaterally. negative: Decreased breath sounds - Cardiovascular Cardiovascular Exam: Regular rate, Normal rhythm, Normal heart sounds - GI/Abdominal GI/Abdominal exam: Soft, Normal bowel sounds - Rectal Rectal exam: Deferred - exam: Deferred - Extremities Extremities exam: Normal inspection, Other (right knee incision). negative: Calf tenderness - Back Back exam: Reports: Normal inspection - Neurological Neurological exam: Alert - Psychiatric Psychiatric exam: Normal affect Hospitalization - Hospitalization Admission Diagnosis: post op knee replacement - Problem List (1) Physical deconditioning Current Visit: Yes Status: Acute Base Code: R53.81 - OTHER MALAISE Comment: 06/22/16- Improved. Patient has been working with PT/OT M-F to improve strength and physical functioning. She is doing quite well and will actually transition straight to outpatient therapy and does not require home therapy. -Script for outpatient PT written and faxed upstairs to [facility] (2) History of total right knee replacement Current Visit: Yes Status: Acute Base Code: Z96.651 - PRESENCE OF RIGHT ARTIFICIAL KNEE JOINT Comment: 06/22/16: s/p right TKA. -[place] 5/325 mg 1-2 tabs, PO, q 6 hours as needed for pain. -Complete 14 days of ASA 325 mg PO bid for DVT prophylaxis. -Follow up with Dr. Sampson as indicated. (3) Full code status Current Visit: Yes Status: Acute Base Code: Z78.9 - OTHER SPECIFIED HEALTH STATUS Comment: 06/22/16: pt is full code. (4) Insulin dependent diabetes mellitus Current Visit: Yes Status: Acute Base Code: E11.9 - TYPE 2 DIABETES MELLITUS WITHOUT COMPLICATIONS; Z79.4 - [facility] (CURRENT) USE OF INSULIN Comment: 06/22/16: continue home medications. (5) DVT prophylaxis Current Visit: Yes Status: Acute Base Code: [id number] - Comment: 06/22/16: 325 mg PO ASA BID x 14 days. Ambulation as tolerated. - Hospitalization Course Hospital Course: 70 yo female w/ pmhx of osteoarthritis, IDDM type 2, HTN, high cholesterol, depression, obesity and acid reflux. Admitted to our JOSE unit following total right knee arthroplasty 06/14/[address] Sampson. Patient's pain has been well controlled w/ [place] PO 5/325 mg 1-[address] pills [address] Sampson placed her on 325 mg BID of ASA x 14 days following surgery. She's tolerating ambulation w/ assistance to the commode. Tolerating meals. Normal bowel and bladder function. Denies SOB, CP, calf pain, skin changes, abdominal pain, N/V, fever, chills, headache or dysuria. Lives with her at home. Typically, she's able to complete her ADL's independently. She lives in a two story home (with a basement), however remains mainly on the first floor. Four steps to get into her home w/ a hand- railing. 06/22/16- PCP: Dr. Flores ([place], [place]) Abnormal Labs: Abnormal Lab Results 06/18/16 06/18/16 06/20/16 Range/Units 11:30 17:00 07:20 POC Glucose 129 H 154 H 119 H (70-110) mg/dL 06/20/16 06/21/16 Range/Units 16:50 07:23 POC Glucose 129 H 118 H (70-110) mg/dL Discharge Medications - Discharge Medications Prescriptions: Hydrocodone/Acetaminophen [Hydrocodone/Acetaminophen 10mg/325mg] 1 tab PO Q6H PRN #24 tab PRN Reason: Pain - Severe (8-10) Home Medications: Ambulatory Orders Hydrocodone/Acetaminophen [Hydrocodone/Acetaminophen 10mg/325mg] 1 tab PO Q6H PRN #24 tab 06/22/16 [Last Taken Unknown] Discharge Plan - Discharge Instructions Activity at Discharge: As Per Physical Therapy Diet at Discharge: Diabetic Diet Additional Instructions: Follow up with Dr. Sampson as previously scheduled on 06/28/16 Follow up with physical therapy on Saturday at 12:45pm May use Hydrocodone 10/325mg 1 tablet PO q6H as needed for severe pain Please call with any questions or concerns
[2016-06-22] MEDS: CARVEDILOL 3.125 MG PO SCH (10:08)
[2016-06-22] MEDS: PATIENT OWN MED: ASPIRIN 325 MG PO SCH (10:09)
[2016-06-22] MEDS: INDAPAMIDE 1.25 MG PO SCH (10:10)
[2016-06-22] MEDS: IRBESARTAN 150 MG PO SCH (10:11)
[2016-06-22] MEDS: SERTRALINE 100 MG PO SCH (10:11)
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
== END 2016-06-22 11:35 | disposition home or self-care (01) | DRG 948 ==
LOC: MEDSURG 15:47
PROVIDERS: ADMIT Family Medicine; ATTEND Family Medicine
DX: R53.81 Other malaise (principal); Z96.651 Presence of right artificial knee joint; E10.9 Type 1 diabetes mellitus without complications; Z79.4 Long term (current) use of insulin; Z78.9 Other specified health status; E78.00 Pure hypercholesterolemia, unspecified; J44.9 Chronic obstructive pulmonary disease, unspecified; I25.10 Atherosclerotic heart disease of native coronary artery without angina pectoris
CPT/HCPCS: 36416; 82948; 97110; 97140; 97161; 97165; 97530; 97535; 99223; 99239

== ENCOUNTER 2017-04-21 15:17 | Emergency (ER) | payer MEDICARE ==
[2017-04-21] MEDS ORDERED: MORPHINE SULFATE 5 MG/ML PFS IVP ONE ×2 (15:30→16:28)
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
[2017-04-21] MEDS ORDERED: ACETAMINOPHEN 1,000 MG/100 ML BTL IVPB ONE (16:14)
[2017-04-21] MEDS ORDERED: HYDROCODONE/APAP 7.5/325MG TABLET PO ONE (18:00)
--- NOTE | 2017-04-22 08:34 | RADIOLOGY REPORT ---
EXAM: LEFT WRIST, THREE VIEWS HISTORY: POSTERIOR LEFT WRIST PAIN POST FALL. TECHNIQUE: AP, oblique and lateral views of the left wrist were obtained. Comparison: None. Encounter: Initial. FINDINGS: There is evidence of a comminuted intraarticular fracture of the distal radius including the radial styloid with posterior displacement of the main distal fracture fragments. Additionally, there is minor lateral displacement of the radial styloid fragment. No other fracture is seen nor is there dislocation. There is soft tissue swelling at the fracture site. There are degenerative changes scattered throughout the visualized wrist and hand. IMPRESSION: COMMINUTED, MILDLY DISPLACED AND ANGULATED INTRAARTICULAR FRACTURE OF THE DISTAL RADIUS. JOB NUMBER: [id number] MTDD
== END 2017-04-21 18:31 | disposition home or self-care (01) ==
LOC: ER 15:17
DX: S52.572A Other intraarticular fracture of lower end of left radius, initial encounter for closed fracture (principal); S80.211A Abrasion, right knee, initial encounter; W19.XXXA Unspecified fall, initial encounter; Y93.E9 Activity, other interior property and clothing maintenance; Y92.009 Unspecified place in unspecified non-institutional (private) residence as the place of occurrence of the external cause
CPT/HCPCS: 29125; 99284 ×2; 96376; 96374; 96375; 73110; J2270

== ENCOUNTER 2018-03-05 14:43 | Emergency (ER) | payer MEDICARE ==
[2018-03-05] MEDS ORDERED: HUMULIN R 100 UNIT/ML VIAL SC ONE (14:44)
[2018-03-05] MEDS ORDERED: NOVOLOG FLEXPEN (INSULIN ASPART) 100 UNITS/ML SQ ONE (15:26)
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
[2018-03-05] MEDS: HUMULIN R 100 UNIT/ML VIAL SQ ONE (15:42)
[2018-03-05 15:44] LABS: BASO % 0.4 % (0-6); EOS % 2.8 % (0-6); GRAN % 62.8 % (47-80); HEMATOCRIT 36.7 % (35.0-47.0); HEMOGLOBIN 11.6 gm/dl (11.6-16.0); LYMPH % 24.7 % (16-45); MEAN CORPUSCULAR HEMOGLOBIN 27.5 pg (27-33); MEAN CORPUSCULAR HGB CONC 31.6 g/dl (32-36); MEAN PLATELET VOLUME 9.8 fl (7.4-10.4); MONO % 9.3 % (0-9); PLATELET COUNT 295 K/uL (130-400); RED BLOOD COUNT 4.22 M/uL (3.80-5.40); RED CELL DISTRIBUTION WIDTH 14.8 % (11.5-14.5); WHITE BLOOD COUNT W/O DIFF 9.4 K/uL (4.2-12.2)
[2018-03-05 15:56] LABS: ACETONE,SERUM NEGATIVE (NEGATIVE)
[2018-03-05 15:57] LABS: BLOOD UREA NITROGEN 18 mg/dL (8-23); CREATININE 1.2 mg/dL (0.5-0.9); EST GLOMERULAR FILTRATION RATE 47 mL/min
[2018-03-05 16:00] LABS: GLUCOSE,RANDOM 302 mg/dL (74-109)
== END 2018-03-05 16:52 | disposition home or self-care (01) ==
LOC: ER 14:43
DX: E11.65 Type 2 diabetes mellitus with hyperglycemia (principal); Z79.4 Long term (current) use of insulin; Z79.84 Long term (current) use of oral hypoglycemic drugs; I10 Essential (primary) hypertension; I25.2 Old myocardial infarction; Z87.891 Personal history of nicotine dependence
CPT/HCPCS: 36416; 80048; 82009; 82948; 85025; 96372; 99283; 99284